=== PATIENT | female | born 1975 | race Caucasian/White ===

== ENCOUNTER 2018-08-22 15:29 | Emergency (ER) | payer OTHER ==
[~2018-08-22] VITALS: Ht 154.9 cm; Wt 63.5 kg
[~2018-08-22 15:29] MED LIST: AZIT500T PO; CEFP200T PO; CYCL-331 PO; ESCITALOPRAM OX10 MG PO; GABA600T PO; GABA800T5 PO; HYDR-2678 PO; HYDR1TAB10 PO; IBUP200T44 PO; ONDA8TAB12 PO; TEMA15CA6 PO; TRAM50TA PO
[2018-08-22 16:10] VITALS: BP 113/75
--- NOTE | 2018-08-22 16:35 | PHYS DOC ---
Past History Past Medical History: Depression Past Surgical History: No Surgical History Smoking: Cigarettes, Quit Less Than 1 Year Alcohol Use: None Drug Use: None Adult General Chief Complaint Chief Complaint: WRIST PAIN HPI HPI 43-year-old female presents with right wrist cyst. The patient had a cyst 8 years ago and she had it drained and it did not come back until about a month ago. It has been getting progressively larger and is more painful. Patient presents today because it's hurting her quite a bit and she is leaving the country [place] 4 days. He denies fever or chills. She was unable to get in to her PCP. She has no other complaints. Review of Systems Review of Systems Constitutional: Denies fever or chills [] Eyes: Denies change in visual acuity, redness, or eye pain [] HENT: Denies nasal congestion or sore throat [] Respiratory: Denies cough or shortness of breath [] Cardiovascular: No additional information not addressed in HPI [] GI: Denies abdominal pain, nausea, vomiting, bloody stools or diarrhea [] : Denies dysuria or hematuria [] Musculoskeletal: Denies back pain or joint pain [] Integument: Cyst on the right volar wrist, radial side[] Neurologic: Denies headache, focal weakness or sensory changes [] Endocrine: Denies polyuria or polydipsia [] All other systems were reviewed and found to be within normal limits, except as documented in this note. Allergies Allergies Allergies Coded Allergies Type Severity Reaction Last Updated Verified promethazine HCl Allergy Intermediate "I get hyper." 03/13/14 Yes Physical Exam Physical Exam Constitutional: Well developed, well nourished, no acute distress, non-toxic appearance. [] HENT: Normocephalic, atraumatic, bilateral external ears normal, oropharynx moist, no oral exudates, nose normal. [] Eyes: PERRLA, EOMI, conjunctiva normal, no discharge. [] Neck: Normal range of motion, no tenderness, supple, no stridor. [] Cardiovascular:Heart rate regular rhythm, no murmur [] Lungs & Thorax: Bilateral breath sounds clear to auscultation [] Abdomen: Bowel sounds normal, soft, no tenderness, no masses, no pulsatile masses. [] Skin: 1.5 cm cyst on the right wrist radial side. No surrounding erythema or warmth.[] Back: No tenderness, no CVA tenderness. [] Extremities: No tenderness, no cyanosis, no clubbing, ROM intact, no edema. [] Neurologic: Alert and oriented X 3, normal motor function, normal sensory function, no focal deficits noted. [] Psychologic: Affect normal, judgement normal, mood normal. [] EKG EKG [] Radiology/Procedures Radiology/Procedures [] Course & Med Decision Making Course & Med Decision Making Pertinent Labs and Imaging studies reviewed. (See chart for details) I was able to aspirate the patient's cyst. I obtained verbal consent from the patient. I then cleansed the area 3 times with alcohol wipes. I used a sterile 18-gauge needle on a 3 mL syringe to penetrate the cyst. I aspirated as I entered. A small amount of fluid came into the syringe. I then removed the needle and compressed the cyst manually. Clear fluid was expressed. There is no signs of infection. I covered the area with gauze and a compression wrap. The patient will follow up through PCP if it returns. She is stable for discharge at this time. [] Dragon Disclaimer Dragon Disclaimer This electronic medical record was generated, in whole or in part, using a voice recognition dictation system. Departure Departure: Impression: Primary Impression: Ganglion cyst of wrist Disposition: 01 HOME, SELF-CARE Condition: STABLE Referrals: DAQUAN SCHWARTZ MD (PCP) Patient Instructions: Ganglion Cyst Problem Qualifiers Primary Impression: Ganglion cyst of wrist Laterality: right Qualified Codes: M67.431 - Ganglion, right wrist LÁZARO GERMAIN DO Aug 22, 2018 16:34
== END 2018-08-22 16:30 | disposition home or self-care (01) ==
LOC: ER 15:29
DX: M67.431 Ganglion, right wrist (principal); Z87.891 Personal history of nicotine dependence; Z88.8 Allergy status to other drugs, medicaments and biological substances
CPT/HCPCS: 20612; 99284

== ENCOUNTER 2018-11-18 21:53 | Emergency (ER) | payer OTHER ==
[~2018-11-18] VITALS: Ht 154.9 cm; Wt 64.8 kg
[2018-11-18 21:58] VITALS: BP 129/89
--- NOTE | 2018-11-18 22:43 | PHYS DOC ---
Past History Past Medical History: No Pertinent History, Depression Past Surgical History: No Surgical History Smoking: Cigarettes, Quit Less Than 1 Year Alcohol Use: None Drug Use: None Adult General Chief Complaint Chief Complaint: DENTAL PROBLEM HPI HPI Patient is a 43 year old female who presents with complaint of dental pain. The patient underwent removal of all teeth by oral maxillofacial specialist yesterday due to severe dental decay. Was prescribed oxycodone, prednisone, and topical benzocaine for treatment of symptoms. States that she was also placed on clindamycin for postoperative antibiotic treatment. States that despite treatment she is having moderate to severe pain. Patient appears noticeably drowsy. Last took oxycodone at 1900. Came to the emergency department for further treatment of pain. Denies any fevers, shortness of breath, or throat swelling. Review of Systems Review of Systems Constitutional: Denies fever or chills [] Eyes: Denies change in visual acuity, redness, or eye pain [] HENT: Dental pain[] Respiratory: Denies cough or shortness of breath [] Cardiovascular: Denies chest pain or edema[] GI: Denies abdominal pain, nausea, vomiting, bloody stools or diarrhea [] : Denies dysuria or hematuria [] Musculoskeletal: Denies back pain or joint pain [] Integument: Denies rash or skin lesions [] Neurologic: Denies headache, focal weakness or sensory changes [] All other systems were reviewed and found to be within normal limits, except as documented in this note. Allergies Allergies Allergies Coded Allergies Type Severity Reaction Last Updated Verified promethazine HCl Allergy Intermediate "I get hyper." 03/13/14 Yes Physical Exam Physical Exam Constitutional: Drowsy, afebrile, no acute distress. [] HENT: Normocephalic, atraumatic, bilateral external ears normal, oropharynx moist, no oral exudates, nose normal. [] Eyes: Pupils pinpoint, EOMI, conjunctiva normal, no discharge. [] Neck: Normal range of motion, no tenderness, supple, no stridor. [] Cardiovascular: Tachycardia, regular rhythm, no murmur [] Lungs & Thorax: Bilateral breath sounds clear to auscultation [] Abdomen: Bowel sounds normal, soft, no tenderness, no masses, no pulsatile masses. [] Skin: Warm, dry, no erythema, no rash. [] Back: No tenderness, no CVA tenderness. [] Extremities: No tenderness, no cyanosis, no clubbing, ROM intact, no edema. [] Neurologic: Drowsy, oriented 3, normal motor function, no focal deficits noted. [] Current Patient Data Vital Signs Vital Signs Date Time Temp Pulse Resp B/P (MAP) Pulse Ox O2 Delivery O2 Flow Rate FiO2 11/18/18 21:58 99.6 117 10 95 Lab Results Not performed EKG EKG Not performed[] Radiology/Procedures Radiology/Procedures Not performed[] Course & Med Decision Making Course & Med Decision Making Pertinent Labs and Imaging studies reviewed. (See chart for details) The patient appears in no acute distress and I'm actually concerned the patient is displaying signs of mild narcotic toxidrome. The patient is receiving maximal outpatient therapy for treatment of postoperative dental pain. Patient is receiving appropriate outpatient treatment at this time and considering presence of mild narcotic toxidrome, I'm very hesitant to administer any further pain medication at this time due to possible further harm to patient. Advised that the patient continue with the prescribed regimen from her dental surgeon and recommended that she follow-up tomorrow for reevaluation to see if she is a candidate for any further procedures to help further manage her pain symptoms. Advised return to the emergency department for any worsening symptoms. Patient and patient's was understanding and in agreement with treatment plan.[] Dragon Disclaimer Dragon Disclaimer This electronic medical record was generated, in whole or in part, using a voice recognition dictation system. Departure Departure: Impression: Primary Impression: Pain, dental Disposition: 01 HOME, SELF-CARE Condition: STABLE Referrals: DAQUAN SCHWARTZ MD (PCP) Patient Instructions: Dental Pain Additional Instructions: Call your dentist in the morning and be seen tomorrow for reevaluation. Return to the emergency department for any worsening symptoms. KARAN GUEVARA MD November 18, 2018 22:42
== END 2018-11-18 23:08 | disposition home or self-care (01) ==
LOC: ER 21:53
DX: K08.89 Other specified disorders of teeth and supporting structures (principal); G89.18 Other acute postprocedural pain; F32.9 Major depressive disorder, single episode, unspecified; Z87.891 Personal history of nicotine dependence; Z88.8 Allergy status to other drugs, medicaments and biological substances
CPT/HCPCS: 99281

== ENCOUNTER → 2019-05-05 | Outpatient (CLI) | payer OTHER ==
--- NOTE | 2019-05-06 08:35 | RAD ---
Examination: KNEE LEFT 2V History: Pain Comparison/Correlation: None Findings: 2 view examination left knee was performed. Joint spaces are normal. No acute fracture or bone destruction. Soft tissues are unremarkable. No degenerative change. Impression: No acute processes. Electronically signed by: Lorenzo Galicia MD (05/06/2019 8:32 AM) [facility]
== END | disposition home or self-care (01) ==
LOC: PMG 10:23
PROVIDERS: ATTEND Registered Nurse
DX: M25.562 Pain in left knee (principal)
CPT/HCPCS: 73560